=== PATIENT | male | born 1995 | race Caucasian/White ===

== ENCOUNTER 2017-10-13 11:45 | Emergency (ER) | payer OTHER | END 2017-10-13 12:44 | disposition home or self-care (01) | LOC: ER 12:44 | DX: J02.9 Acute pharyngitis, unspecified (principal); J45.909 Unspecified asthma, uncomplicated; L08.9 Local infection of the skin and subcutaneous tissue, unspecified | CPT/HCPCS: 87252; 99283 ==

== ENCOUNTER 2018-01-06 00:17 | Emergency (ER) | payer OTHER | END 2018-01-06 01:00 | disposition left against medical advice (07) | LOC: ER 00:17 | DX: R10.9 Unspecified abdominal pain (principal); Z53.21 Procedure and treatment not carried out due to patient leaving prior to being seen by health care provider ==

== ENCOUNTER 2018-01-09 06:24 | Emergency (ER) | payer SELFPAY ==
[~2018-01-09] VITALS: Ht 177.8 cm; Wt 88.5 kg
[~2018-01-09 06:24] MED LIST: CEPH-264 PO; VALA1000 PO
--- NOTE | 2018-01-09 06:57 | PHYS DOC ---
Past Medical History Past Medical History: Asthma Past Surgical History: Other Additional Past Surgical Histo: ear surgery Alcohol Use: Occasionally Drug Use: Marijuana Adult General Chief Complaint Chief Complaint: ABDOMINAL PAIN HPI HPI Patient is a 22 year old male who presents to the ER for evaluation STD exposure. Patient reports that his girlfriend who he is sexually active with was told that she has Chlamydia. Patient denies any dysuria, penile discharge, penile lesions, or rash Review of Systems Review of Systems Constitutional: Denies fever or chills [] HENT: Denies nasal congestion or sore throat [] Respiratory: Denies cough or shortness of breath [] Cardiovascular: Chest pain, no orthopnea GI: Denies abdominal pain, nausea, vomiting, bloody stools or diarrhea [] : Denies dysuria or hematuria [] Integument: Denies rash or skin lesions [] Neurologic: Denies headache, focal weakness or sensory changes [] Endocrine: Denies polyuria or polydipsia [] All other systems were reviewed and found to be within normal limits, except as documented in this note. Allergies Allergies Allergies Coded Allergies Type Severity Reaction Last Updated Verified No Known Drug Allergies 02/05/14 No Physical Exam Physical Exam Constitutional: Well developed, well nourished, no acute distress, non-toxic appearance. [] HENT: Normocephalic, atraumatic, Eyes: PERRLA, EOMI, Neck:no stridor. [] Cardiovascular:Heart rate regular rhythm, no murmur [] Lungs & Thorax: Bilateral breath sounds clear to auscultation [] Abdomen: Bowel sounds normal, soft, no tenderness, no masses, no pulsatile masses. [] Skin: Warm, dry, no erythema, no rash. [] Extremities: No tenderness, no cyanosis,ROM intact, no edema. [] Neurologic: Alert and oriented X 3, no focal deficits noted. [] Psychologic: Affect normal, judgement normal, mood normal. [] EKG EKG [] Radiology/Procedures Radiology/Procedures [] Course & Med Decision Making Course & Med Decision Making Pertinent Labs and Imaging studies reviewed. (See chart for details) []Patient currently asymptomatic with history of STD exposure. Patient is agreeable to prophylactic treatment. Patient was given IM ceftriaxone and PO 1 gram azithromycin in the ER. Patient advised to follow-up with primary care physician or state health department for further STD testing. ER return precautions given. Patient verbalized understanding. All questions answered. Patient declined a exam but reported no penile lesions. Dragon Disclaimer Dragon Disclaimer This electronic medical record was generated, in whole or in part, using a voice recognition dictation system. Departure Departure Impression: Primary Impression: STD exposure Disposition: HOME, SELF-CARE Condition: STABLE Referrals: NO PCP (PCP) [facility] DE[facility] Patient Instructions: Safe Sex, Sexually Transmitted Disease, [id number] Additional Instructions: Thank you for coming to [facility]. Please repeat the attached handouts. Please follow-up with your primary care physician. Return to the ER if your symptoms worsen or you have any other concerns. You have been treated prophylactically for gonorrhea and chlamydia. No further antibiotics are necessary at this time. Please follow-up with a primary care physician or the [facility] department for further STD testing including hepatitis and HIV. ROBIN BALLARD DO Jan 09, 2018 06:57
[2018-01-09] MEDS ORDERED: AZITHROMYCIN 250 MG TABLET. PO ONE (07:00)
[2018-01-09] MEDS ORDERED: cefTRIAXone IM 250 MG VIAL IM ONE (07:00)
[2018-01-09 07:24] VITALS: BP 107/53
== END 2018-01-09 07:47 | disposition home or self-care (01) ==
LOC: ER 06:24
DX: Z20.2 Contact with and (suspected) exposure to infections with a predominantly sexual mode of transmission (principal); J45.909 Unspecified asthma, uncomplicated
CPT/HCPCS: 96372; 99283; J0696; Q0144

== ENCOUNTER 2018-05-26 17:23 | Emergency (ER) | payer SELFPAY ==
[~2018-05-26] VITALS: Ht 180.3 cm; Wt 86.2 kg
[2018-05-26 17:42] VITALS: BP 151/80
--- NOTE | 2018-05-26 18:26 | PHYS DOC ---
Past Medical History Past Medical History: Asthma, Other Additional Past Medical Histor: adhd Past Surgical History: No Surgical History, Other Additional Past Surgical Histo: ear surgery Alcohol Use: None Drug Use: None Adult General Chief Complaint Chief Complaint: ANKLE PROBLEM [facility] HPI Patient is a 22 year old [f__sex] who presents with [] Review of Systems Review of Systems Constitutional: Denies fever or chills [] Eyes: Denies change in visual acuity, redness, or eye pain [] HENT: Denies nasal congestion or sore throat [] Respiratory: Denies cough or shortness of breath [] Cardiovascular: No additional information not addressed in HPI [] GI: Denies abdominal pain, nausea, vomiting, bloody stools or diarrhea [] : Denies dysuria or hematuria [] Musculoskeletal: Denies back pain or joint pain [] Integument: Denies rash or skin lesions [] Neurologic: Denies headache, focal weakness or sensory changes [] Endocrine: Denies polyuria or polydipsia [] All other systems were reviewed and found to be within normal limits, except as documented in this note. Allergies Allergies Allergies Coded Allergies Type Severity Reaction Last Updated Verified No Known Drug Allergies 02/05/14 No Physical Exam Physical Exam Constitutional: Well developed, well nourished, no acute distress, non-toxic appearance. [] HENT: Normocephalic, atraumatic, bilateral external ears normal, oropharynx moist, no oral exudates, nose normal. [] Eyes: PERRLA, EOMI, conjunctiva normal, no discharge. [] Neck: Normal range of motion, no tenderness, supple, no stridor. [] Cardiovascular:Heart rate regular rhythm, no murmur [] Lungs & Thorax: Bilateral breath sounds clear to auscultation [] Abdomen: Bowel sounds normal, soft, no tenderness, no masses, no pulsatile masses. [] Skin: Warm, dry, no erythema, no rash. [] Back: No tenderness, no CVA tenderness. [] Extremities: No tenderness, no cyanosis, no clubbing, ROM intact, no edema. [] Neurologic: Alert and oriented X 3, normal motor function, normal sensory function, no focal deficits noted. [] Psychologic: Affect normal, judgement normal, mood normal. [] Current Patient Data Vital Signs Vital Signs Date Time Temp Pulse Resp B/P (MAP) Pulse Ox O2 Delivery O2 Flow Rate FiO2 05/26/18 17:42 99.0 103 16 151/80 (103) 99 Room Air 99.0 EKG EKG [] Radiology/Procedures Radiology/Procedures [] Course & Med Decision Making Course & Med Decision Making Pertinent Labs and Imaging studies reviewed. (See chart for details) [] Dragon Disclaimer Dragon Disclaimer This electronic medical record was generated, in whole or in part, using a voice recognition dictation system. Departure Departure Impression: Primary Impression: Ankle pain Disposition: HOME, SELF-CARE Condition: STABLE Referrals: NO PCP (PCP) Patient Instructions: RICE - Routine Care for Injuries Additional Instructions: Take ibuprofen or Tylenol for pain. Follow-up with your primary care provider for recheck in 3 days or return to the emergency department if worsening. RICE the extremity for comfort. LINDA LAWS APRN May 26, 2018 18:26
== END 2018-05-26 18:31 | disposition home or self-care (01) ==
LOC: ER 17:23
DX: M25.571 Pain in right ankle and joints of right foot (principal); J45.909 Unspecified asthma, uncomplicated; F90.9 Attention-deficit hyperactivity disorder, unspecified type
CPT/HCPCS: 99281